=== PATIENT | male | born 1950 | race Caucasian/White ===

== ENCOUNTER 2019-07-09 08:40 | Emergency (ER) | payer MEDICARE, OTHER ==
[~2019-07-09] VITALS: Ht 162.6 cm; Wt 73.0 kg
[2019-07-09 09:13] VITALS: BP 142/74
== END 2019-07-09 10:43 | disposition home or self-care (01) ==
LOC: EDBD 08:40 → ER 08:40
DX: J06.9 Acute upper respiratory infection, unspecified (principal)
CPT/HCPCS: 99281